=== PATIENT | male | born 1995 | race Caucasian/White ===

== ENCOUNTER 2024-03-21 18:48 | Inpatient (IN) ==
[2024-03-21] MEDS ORDERED: Lorazepam PYXIS KEY PRN (19:19)
[2024-03-21] MEDS: Lactated Ringers 1000 ml BAG 1,000 ML IV ONE (19:40)
[2024-03-21] MEDS: LORazepam 2 mg VIAL 1 ml IM ONE (19:41)
[2024-03-21] MEDS: Haloperidol 5 mg/ml SDV IV/IM 5 MG/ML AMP IM ONE (19:41)
[2024-03-21] MEDS: Midazolam 5 mg/5 ml VIAL 1 mg/ml 5 ml VIAL (5 mg) IV SLOW PU ONE ×5 (20:18→23:01)
[2024-03-21 20:29] LABS: ABS Eosinophils 0.1 10^3/uL (0.0-0.5); ABS Lymphocytes 2.2 10^3/uL (1.0-4.8); ABS Monocytes 0.5 10^3/uL (0.0-1.1); ABS Neutrophils 4.3 10^3/uL (1.5-7.6); ABS Nucleated RBC 0.01 10^3/ul; Hemoglobin 13.2 g/dL (13.2-16.3); Lymphocyte % 30.4 %; Mean Corpuscular Hemoglobin 25.2 pg (27-33); Mean Corpuscular Hgb Conc 32.2 g/dL (31-36); Mean Corpuscular Volume 78.4 fL (80-97); Mean Platelet Volume 8.4 fL (7.5-11.2); Nucleated Red Blood Cells % 0.1 %/100WBC (0.0-0.8); Platelet Count 229 10^3/uL (150-450); Red Blood Count 5.23 10^6/uL (4.06-5.63); Red Cell Distribution Width 14.1 % (12-17); White Blood Count 7.2 10^3/uL (3.6-10.2)
[2024-03-21 20:45] LABS: ALT 42 U/L (7-52); AST 28 U/L (13-39); Acetaminophen < 15 mcg/mL; Albumin 4.3 g/dL (3.2-5.2); Albumin/Globulin Ratio 1.9 (1-3); Alcohol, S 208 mg/dL (<13); Alkaline Phosphatase 54 U/L (35-149); Anion Gap 14 mmol/L (2-16); Blood Urea Nitrogen 19 mg/dL (6-24); CO2 Carbon Dioxide 20 mmol/L (22-32); Chloride 108 mmol/L (101-111); Creatine Kinase 704 U/L (10-223); Creatinine, Serum 0.91 mg/dL (0.67-1.17); Globulin 2.3 g/dL (2-4); Glucose 143 mg/dL (70-100); Potassium 3.3 mmol/L (3.5-5.0); Salicylate < 2.50 mg/dL (<30); Sodium 142 mmol/L (135-145); Total Bilirubin 0.3 mg/dL (0.2-1.0); Total Protein 6.6 g/dL (6.4-8.9); eGFR CKD-EPI 115.6 (>60)
[2024-03-21 21:13] LABS: TSH Ultra Thyroid Stim Horm 1.66 mcIU/mL (0.34-5.60)
[2024-03-21] MEDS: Droperidol 5 MG/2 ML 2 ML VIAL IV ONE (21:15)
[2024-03-21] MEDS ORDERED: Lidocaine 1% MPF 5 ML VIAL ONE (23:15)
[2024-03-22] MEDS: Lidocaine 1% MPF 5 ML VIAL INJ ONE (05:26)
[2024-03-22] MEDS: Lactated Ringers 1000 ml BAG 1,000 ML IV ONE (05:26)
[2024-03-22 05:28] LABS: Urine Appearance Clear; Urine Bilirubin Negative (Negative); Urine Blood Negative (Negative); Urine Color Light-Yellow; Urine Glucose Negative (Negative); Urine Ketones Negative (Negative); Urine Nitrite Negative (Negative); Urine Protein Negative (Negative); Urine Specific Gravity 1.018 (1.002-1.030); Urine Urobilinogen Negative (Negative)
[2024-03-22 06:04] LABS: Urine Benzodiazepine Screen Presumptive Positive (None Detect); Urine Cannabinoids Screen Presumptive Positive (None Detect); Urine Opiates Screen None Detected (None Detect)
[2024-03-22] MEDS ORDERED: LORazepam 2 mg VIAL 1 ml ONE (08:51)
[2024-03-22] MEDS: Haloperidol 5 mg/ml SDV IV/IM 5 MG/ML AMP IV SLOW PU ONE (11:53)
[2024-03-22] MEDS ORDERED: Al Hydrox/Mg Hydrox/Simet LIQ 30 ML UDC PO PRN (12:43)
[2024-03-22] MEDS: Thiamine 100 MG/ML 2 ml VIAL (200 mg) IM ONE (12:57)
[2024-03-22] MEDS: Multivitamins/Minerals TAB PO SCH (12:58)
[2024-03-22] MEDS ORDERED: Vitamin THERAPEUTIC TAB PO SCH (13:00)
[2024-03-23 14:35] VITALS: BP 128/92
== END 2024-03-23 15:41 | disposition home or self-care (01) | DRG 755 ==
LOC: ED 18:48 → EDHOLD 03-22 11:26 → BSU 03-22 11:52
PROVIDERS: ADMIT Psychiatry & Neurology Psychiatry; ATTEND Psychiatry & Neurology Psychiatry